=== PATIENT | male | born 1995 | race African-American/Black ===

== ENCOUNTER 2021-01-05 19:28 | Emergency (ER) | payer SELFPAY ==
[~2021-01-05] VITALS: Ht 170.2 cm; Wt 110.0 kg
--- NOTE | 2021-01-05 19:34 | PHYS DOC ---
Adult General Chief Complaint Chief Complaint: SORE THROAT HPI HPI Patient is an otherwise healthy 25-year-old male who presents with sore throat for about the last 24 hours, 5 out of 10, sharp in nature associated with fevers at home from 101-102 with mild whole head headaches. Denies any cough, chest p ain, shortness of breath, abdominal pain, nausea, vomiting, dysuria, hematuria, blood in the stool or diarrhea. Denies any recent traumas, travels, known ill contacts. Review of Systems Review of Systems Review of systems otherwise unremarkable except noted in HPI Physical Exam Physical Exam Constitutional: Well developed, well nourished, no acute distress, non-toxic appearance. [] HENT: Normocephalic, atraumatic, bilateral external ears normal, oropharynx moist, oropharynx with bilateral erythema, and scant white exudate Eyes: PERRLA, EOMI, conjunctiva normal, no discharge. [] Neck: Normal range of motion, no tenderness, supple, no stridor, left-sided cervical lymphadenopathy. [] Cardiovascular:Heart rate regular rhythm, no murmur [] Lungs & Thorax: Bilateral breath sounds clear to auscultation [] Abdomen: Bowel sounds normal, soft, no tenderness, no masses, no pulsatile masses. [] Skin: Warm, dry, no erythema, no rash. [] Neurologic: Alert and oriented X 3, no focal deficits noted. [] Psychologic: Affect normal, judgement normal, mood normal. [] EKG EKG [] Radiology/Procedures Radiology/Procedures [] Heart Score C/O Chest Pain: No Risk Factors: Risk Factors: DM, Current or recent (<one month) smoker, HTN, HLP, family history of CAD, obesity. Risk Scores: Risk Factors: DM, Current or recent (<one month) smoker, HTN, HLP, family histo ry of CAD, obesity. Course & Med Decision Making Course & Med Decision Making Patient is a 25-year-old male who presents with about a day of sore throat, fever, headache Vital signs not concerning. Physical exam noted above. Centor criteria of 5, suggestive of strep throat. Last [id number] medicine was about noon. Given Tylenol, ibuprofen, dexamethasone and amoxicillin. Discussed all findings with patient. Advised on pain control at home. Advised on antibiotic use. Given work note for tomorrow advised to stay away from work while feverish and not to return until 24 hours after fever resolved with no Tylenol or ibuprofen. Advised to follow-up with primary care physician and given contact information for local primary care physicians. Gave return precautions to the ED. Patient grateful, verbalized understanding and agreed with plan of discharge. [] Dragon Disclaimer Dragon Disclaimer This electronic medical record was generated, in whole or in part, using a voice recognition dictation system. Departure Departure: Impression: Primary Impression: Strep pharyngitis Disposition: HOME / SELF CARE / HOMELESS Condition: GOOD Referrals: PCP,NO (PCP) MARK BUTTS MD Patient Instructions: Strep Throat Additional Instructions: Thank you for coming into the emergency department today to allow us to take care of you. Please read all of the attached information very carefully. As discussed you can use Tylenol, ibuprofen and Cepacol lozenges at home as needed. Please take all your antibiotics as prescribed and until gone. You were given a work note for tomorrow to allow rest and recovery. Please do not return to work until you have had no fever for 24 hours with no Tylenol or ibuprofen. Please call your primary care physician first thing Thursday or call the primary care physician at the number provided to establish care if you do not have a primary care physician to set up a follow-up visit. Please come back to the emergency department with new or concerning symptoms as discussed. Scripts Amoxicillin (AMOXICILLIN) 500 Mg Tablet 1 TAB PO BID for strep throat for 10 Days, #19 TAB Prov: ABHISHEK SARABIA MD 01/05/21 ABHISHEK SARABIA MD Jan 05, 2021 19:34
[2021-01-05 19:45] VITALS: BP 137/88
[2021-01-05] MEDS ORDERED: ACETAMINOPHEN 500 MG TABLET PO ONE (19:45)
[2021-01-05] MEDS ORDERED: AMOXICILLIN 250 MG CAPSULE PO ONE (19:45)
[2021-01-05] MEDS ORDERED: IBUPROFEN 600 MG TABLET. PO ONE (19:45)
[2021-01-05] MEDS ORDERED: DEXAMETHASONE 4 MG TABLET PO ONE (19:45)
[2021-01-05] MEDS ORDERED: AMOX500T PO (19:50)
== END 2021-01-05 19:58 | disposition home or self-care (01) ==
LOC: ER 19:28
DX: J02.0 Streptococcal pharyngitis (principal)
CPT/HCPCS: 99284; J8540

== ENCOUNTER 2021-01-28 12:15 | Emergency (ER) | payer SELFPAY ==
[~2021-01-28] VITALS: Ht 170.2 cm; Wt 110.0 kg
[2021-01-28 12:15] VITALS: BP 133/87
[~2021-01-28 12:15] MED LIST: AMOX500T PO
--- NOTE | 2021-01-28 12:36 | PHYS DOC ---
Past History Past Medical History: Migraines Past Surgical History: No Surgical History Alcohol Use: None General Adult EDM: Chief Complaint: HEADACHE HPI: HPI: 25-year-old male presents for a work note. Patient states he had a headache yesterday and his employer required him to come to the hospital today to get a work note. He is headache free at this time. He has no other medical complaints. Review of Systems: Review of Systems: Constitutional: Denies fever or chills Eyes: Denies change in visual acuity HENT: Denies nasal congestion or sore throat Respiratory: Denies cough or shortness of breath Cardiovascular: Denies chest pain or edema GI: Denies abdominal pain, nausea, vomiting, bloody stools or diarrhea : Denies dysuria Musculoskeletal: Denies back pain or joint pain Integument: Denies rash Neurologic: Headache. Denies focal weakness or sensory changes Endocrine: Denies polyuria or polydipsia Lymphatic: Denies swollen glands Psychiatric: Denies depression or anxiety Allergies: Allergies: Allergies Coded Allergies Type Severity Reaction Last Updated Verified No Known Drug Allergies 01/05/21 No Physical Exam: PE: Constitutional: Well developed, well nourished, no acute distress, non-toxic appearance. [] HENT: Normocephalic, atraumatic, bilateral external ears normal, oropharynx moist, no oral exudates, nose normal. [] Eyes: PERRLA, EOMI, conjunctiva normal, no discharge. [] Neck: Normal range of motion, no tenderness, supple, no stridor. [] Cardiovascular: Heart rate regular rhythm, no murmur [] Lungs & Thorax: Bilateral breath sounds clear to auscultation [] Abdomen: Bowel sounds normal, soft, no tenderness, no masses, no pulsatile masses. [] Skin: Warm, dry, no erythema, no rash. [] Back: No tenderness, no CVA tenderness. [] Extremities: No tenderness, no cyanosis, no clubbing, ROM intact, no edema. [] Neurologic: Alert and oriented X 3, normal motor function, normal sensory function, no focal deficits noted. [] Psychologic: Affect normal, judgement normal, mood normal. [] EKG: EKG: [] Radiology/Procedures: Radiology/Procedures: [] Heart Score: C/O Chest Pain: N/A Risk Factors: Risk Factors: DM, Current or recent (<one month) smoker, HTN, HLP, family history of CAD, obesity. Risk Scores: Score 0 - 3: 2.5% MACE over next 6 weeks - Discharge Home Score 4 - 6: 20.3% MACE over next 6 weeks - Admit for Clinical Observation Score 7 - 10: 72.7% MACE over next 6 weeks - Early Invasive Strategies Course & Med Decision Making: Course & Med Decision Making Pertinent Labs and Imaging studies reviewed. (See chart for details) The patient's headache is resolved at this time. He has no further complaints. He is stable for discharge at this time. [] Dragon Disclaimer: Dragon Disclaimer: This electronic medical record was generated, in whole or in part, using a voice recognition dictation system. Departure Departure: Impression: Primary Impression: Headache Disposition: HOME / SELF CARE / HOMELESS Condition: IMPROVED Referrals: PCPJACKELIN (PCP) Patient Instructions: General Headache Without Cause, [id number] CHANDA STARKS DO Jan 28, 2021 12:36
== END 2021-01-28 12:35 | disposition home or self-care (01) ==
LOC: ER 12:15
DX: G43.909 Migraine, unspecified, not intractable, without status migrainosus (principal)
CPT/HCPCS: 99281

== ENCOUNTER 2021-02-02 15:48 | Emergency (ER) | payer SELFPAY ==
[~2021-02-02] VITALS: Ht 170.2 cm; Wt 115.7 kg
--- NOTE | 2021-02-02 16:06 | PHYS DOC ---
Past History Past Medical History: Migraines (MARNI MARTINEZ DO) Past Surgical History: No Surgical History (MARNI MARTINEZ DO) Alcohol Use: None (MARNI MARTINEZ DO) General Adult EDM: Chief Complaint: TESTICULAR PAIN OR INJURY HPI: HPI: 25 yo AA M PMH migraine headaches (on amitriptyline) and obesity presents to the ed with c/o sudden onset left testicular pain that woke patient up in the middle of the night. Patient states he is sexually active, 1 female partner with protection, vaginal only. No known history of sexual transmitted disease. States he's really anxious regarding what's going on "I don't like going to the doctor but I need to know everything is okay." Denies any associated fever, chills, flank pain, nausea, vomiting, dysuria, hematuria, urgency/frequency, rash, lesions or urethral discharge. Reports he has received his Covid vaccine. Denies any blunt trauma. Cannot recall any heavy lifting or squatting. No history of hernias. Declines sexually transmitted prophylaxis but consents to STI testing, for chlamydia and gonorrhea. (MARNI MARTINEZ DO) Review of Systems: Review of Systems: Constitutional: Denies fever or chills Eyes: Denies change in visual acuity HENT: Denies nasal congestion or sore throat Respiratory: Denies cough or shortness of breath Cardiovascular: Denies chest pain or edema GI: Denies abdominal pain, nausea, vomiting, : Denies dysuria or hematuria Musculoskeletal: Denies back pain or joint pain Integument: Denies rash or diaphoresis Neurologic: Denies headache, focal weakness or sensory changes Endocrine: Denies polyuria or polydipsia Lymphatic: Denies swollen glands Psychiatric: Denies suicidal or homicidal ideations (MARNI MARTINEZ DO) Allergies: Allergies: Allergies Coded Allergies Type Severity Reaction Last Updated Verified No Known Drug Allergies 01/05/21 No (MARNI MARTINEZ DO) Physical Exam: PE: Constitutional: Well developed, well nourished, no acute distress, non-toxic appearance, HENT: Normocephalic, atraumatic, Eyes: EOMI, conjunctiva normal, no discharge. Neck: Normal range of motion, supple, Cardiovascular: S1/2 present, regular rhythm Lungs & Thorax: Speaking in full sentences, bilateral equal chest rise, no tachypnea or increased work of breathing Abdomen: soft, no tenderness, obese Skin: Warm, dry, no erythema, no rash. [] Back: No tenderness, no CVA tenderness. [] Extremities: No tenderness, no cyanosis, no lower extremity edema Neurologic: Alert and oriented X 3, normal motor function, normal sensory function, no focal deficits noted. 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 PHYSICIAN: MARNI MARTINEZ DO REASON: testicular pain PROCEDURE: TESTICULAR/SCROTUM CLINICAL HISTORY: Reason: testicular pain / Spl. Instructions: / History: COMPARISON: None available. TECHNIQUE: Ultrasound images of the scrotum was performed with harrison-scale and color doppler. FINDINGS: The right testis measures 4.1 x 6.7 x 2.1 cm. The left testis measures 4.0 x 2.6 x 2.0 cm. There is no intratesticular abnormality. Testicular vascularity is symmetric and within normal limits. The epididymis is normal in appearance bilaterally. There is no hydrocele or varicocele. IMPRESSION: No evidence for testicular torsion Electronically signed by: Phuong Cheney MD (02/02/2021 5:59 PM) MERGED WITH [facility] DICTATED AND SIGNED BY: PHUONG CHENEY MD DATE: 02/02/21 [id number] CC: GILDARDO CASTANEDA MD; PCP,NO; MARNI MARTINEZ DO ~MTH0 0 (MARNI MARTINEZ DO) Radiology/Procedures: [address] [address] IMAGING REPORT Signed PATIENT: JOHN SHAFER LACCOUNT: [id number] : 1995 LOCATION: ER AGE: 25 SEX: M EXAM STATUS: REG ER ORD. PHYSICIAN: MARNI MARTINEZ DO REASON: testicular pain PROCEDURE: TESTICULAR/SCROTUM CLINICAL HISTORY: Reason: testicular pain / Spl. Instructions: / History: COMPARISON: None available. TECHNIQUE: Ultrasound images of the scrotum was performed with harrison-scale and color doppler. FINDINGS: The right testis measures 4.1 x 6.7 x 2.1 cm. The left testis measures 4.0 x 2.6 x 2.0 cm. There is no intratesticular abnormality. Testicular vascularity is symmetric and within normal limits. The epididymis is normal in appearance bilaterally. There is no hydrocele or varicocele. IMPRESSION: No evidence for testicular torsion Electronically signed by: Phuong Cheney MD (02/02/2021 5:59 PM) [facility] WITH [facility] DICTATED AND SIGNED BY: PHUONG CHENEY MD DATE: 02/02/211756 CC: GILDARDO CASTANEDA MD; PCP,NO; MARNI MARTINEZ DO ~MTH0 0 (GILDARDO CASTANEDA MD) Heart Score: C/O Chest Pain: No Risk Factors: Risk Factors: DM, Current or recent (<one month) smoker, HTN, HLP, family history of CAD, obesity. Risk Scores: Score 0 - 3: 2.5% MACE over next 6 weeks - Discharge Home Score 4 - 6: 20.3% MACE over next 6 weeks - Admit for Clinical Observation Score 7 - 10: 72.7% MACE over next 6 weeks - Early Invasive Strategies (MARNI MARTINEZ DO) Course & Med Decision Making: Course & Med Decision Making Pertinent Labs and Imaging studies reviewed. (See chart for details) U/A unremarkable. Testicular ultrasound is performed but has not been read by radiologist. Physical exam with no obvious abnormalities, considering left sided varicocele. Due to shift change patient was signed out to oncoming physician Dr. Castaneda for further evaluation and disposition. (MARNI MARTINEZ DO) Course & Med Decision Making Reviewed US and UA. Re-exam. Does seem to have tender epididymis and spe rmatic cord. No hernia appreciated. Testicle itself is nontender. No history of 3 nonprotected sex partners we will cover STD and epididymitis . Patient follow-up pending cultures. Patient return if any concerns. Patient to masturbate or have protected sex with barrier. Return if any concerns. If this is infectious in nature do not expect improvement for the next 3 days. Take Tylenol and ibuprofen for pain. Impression: 1. Left epididymis/ spermatic cord pain (GILDARDO CASTANEDA MD) Dragon Disclaimer: Dragon Disclaimer: This electronic medical record was generated, in whole or in part, using a voice recognition dictation system. (MARNI MARTINEZ DO) Departure Departure: Impression: Primary Impression: Left testicular pain Referrals: PCP,JACKELIN (PCP) Scripts Cephalexin (KEFLEX) 750 Mg Capsule 500 MG PO TID for testical pain, pending cultur for 14 Days, #42 CAP Prov: GILDARDO CASTANEDA MD 02/02/21 MARNI MARTINEZ DO Feb 02, 2021 16:06 GILDARDO CASTANEDA MD Feb 02, 2021 18:12
[2021-02-02 16:49] LABS: BILIRUBIN,URINE NEG (NEG); CLARITY,URINE CLEAR; COLOR,URINE YELLOW; GLUCOSE,URINE NEG (NEG); NITRITE,URINE NEG (NEG)
[2021-02-02 16:51] LABS: BACTERIA,URINE 0 /HPF (0-FEW); RBC,URINE 0 /HPF (0-2); SQUAMOUS EPITHELIAL CELL,UR OCC /LPF; WBC,URINE 0 /HPF (0-4)
--- NOTE | 2021-02-02 18:01 | RAD ---
CLINICAL HISTORY: Reason: testicular pain / Spl. Instructions: / History: COMPARISON: None available. TECHNIQUE: Ultrasound images of the scrotum was performed with harrison-scale and color doppler. FINDINGS: The right testis measures 4.1 x 6.7 x 2.1 cm. The left testis measures 4.0 x 2.6 x 2.0 cm. There is no intratesticular abnormality. Testicular vascularity is symmetric and within normal limit s. The epididymis is normal in appearance bilaterally. There is no hydrocele or varicocele. IMPRESSION: No evidence for testicular torsion Electronically signed by: Phuong Barrera MD (02/02/2021 5:59 PM) STAR
[2021-02-02] MEDS ORDERED: CEPH750C9 PO (18:18)
[2021-02-02] MEDS ORDERED: cefTRIAXone IM 1 GM VIAL IM ONE (18:30)
[2021-02-02] MEDS ORDERED: AZITHROMYCIN 250 MG TABLET. PO ONE (18:30)
[2021-02-02] MEDS ORDERED: metroNIDAZOLE 500 MG TABLET PO ONE (18:30)
[2021-02-02] MEDS ORDERED: ONDANSETRON ODT 4 MG TAB.RAPDIS PO ONE (18:30)
[2021-02-02] MEDS ORDERED: KETOROLAC 60 MG/2 ML VIAL. IM ONE (18:30)
[2021-02-02 18:52] VITALS: BP 129/81
== END 2021-02-02 18:48 | disposition home or self-care (01) ==
LOC: ER 15:48
DX: N50.812 Left testicular pain (principal); G43.909 Migraine, unspecified, not intractable, without status migrainosus; E66.9 Obesity, unspecified; Z68.39 Body mass index [BMI] 39.0-39.9, adult
CPT/HCPCS: 36415; 76870; 81001; 87491; 87591; 96372; 99284; J0696; J1885; Q0162

== ENCOUNTER 2021-08-25 21:05 | Emergency (ER) | payer SELFPAY ==
[~2021-08-25] VITALS: Ht 170.2 cm; Wt 115.7 kg
[~2021-08-25 21:05] MED LIST changes: +CEPH750C9 PO
--- NOTE | 2021-08-25 22:02 | PHYS DOC ---
Past History Past Medical History: Migraines Past Surgical History: No Surgical History Alcohol Use: None General Adult EDM: Chief Complaint: CONGESTION HPI: HPI: ".. I work at the [employer] .. at [employer].. and I worried I got the flu or COVID..,. I did get the COVID vaccination.. " " But maybe I got it.. I feel like I got the flu..." Patient is a 26 year old male who presents with complaints congestion, cough that is nonproductive, malaise, arthralgia, myalgia, and subjective fevers. Patient has had COVID vaccination. Patient did not get flu vaccination. No recent travel. No specific ill contacts. Normally healthy. Review of Systems: Review of Systems: Constitutional: Subjective fever or chills Eyes: Denies change in visual acuity HENT: Complaints of nasal congestion and sore throat Respiratory: Complaints cough Cardiovascular: Denies chest pain or edema GI: Denies abdominal pain, nausea, vomiting, bloody stools or diarrhea : Denies dysuria Musculoskeletal: Complains of myalgia and arthralgia Integument: Denies rash Neurologic: Denies headache, focal weakness or sensory changes Endocrine: Denies polyuria or polydipsia Lymphatic: Denies swollen glands Psychiatric: Denies depression or anxiety Family History: Family History: Noncontributory Allergies: Allergies: Allergies Coded Allergies Type Severity Reaction Last Updated Verified No Known Drug Allergies 01/05/21 No Physical Exam: PE: Constitutional: Well developed, well nourished, no acute distress, non-toxic appearance. [] HENT: Normocephalic, atraumatic, bilateral external ears normal, oropharynx moist, no oral exudates, nose normal. [] Eyes: PERRLA, EOMI, conjunctiva normal, no discharge. [] Neck: Normal range of motion, no tenderness, supple, no stridor. [] Cardiovascular:Heart rate regular rhythm, no murmur [] Lungs & Thorax: Bilateral breath sounds clear to auscultation [] Abdomen: Bowel sounds normal, soft, no tenderness, no masses, no pulsatile masses. [] Skin: Warm, dry, no erythema, no rash. [] Back: No tenderness, no CVA tenderness. [] Extremities: No tenderness, no cyanosis, no clubbing, ROM intact, no edema. [] Neurologic: Alert and oriented X 3, normal motor function, normal sensory function, no focal deficits noted. [] Psychologic: Affect normal, judgement normal, mood normal. [] EKG: EKG: [] Radiology/Procedures: Radiology/Procedures: [] Heart Score: C/O Chest Pain: N/A Risk Factors: Risk Factors: DM, Current or recent (<one month) smoker, HTN, HLP, family history of CAD, obesity. Risk Scores: Score 0 - 3: 2.5% MACE over next 6 weeks - Discharge Home Score 4 - 6: 20.3% MACE over next 6 weeks - Admit for Clinical Observation Score 7 - 10: 72.7% MACE over next 6 weeks - Early Invasive Strategies Course & Med Decision Making: Course & Med Decision Making Pertinent Labs and Imaging studies reviewed. (See chart for details). Push fluids. Take Tylenol ibuprofen as needed for discomfort. Take Tamiflu 75 mg twice a day if he elects to treat the flu. Self isolate the next 5 days. Follow-up primary care. Return if any concerns. Impression: 1. Influenza A. Positive [] José Disclaimer: José Disclaimer: This electronic medical record was generated, in whole or in part, using a voice recognition dictation system. Departure Departure: Referrals: PCP,NO (PCP) Scripts Oseltamivir Phosphate (TAMIFLU) 75 Mg Capsule 75 MG PO BID for Influz. A for 5 Days, #10 CAP Prov: GILDARDO BOLTON MD 08/25/21 José Disclaimer This chart was dictated in whole or in part using Voice Recognition software in a busy, high-work load, and often noisy Emergency Department environment. It may contain unintended and wholly unrecognized errors or omissions. GILDARDO BOLTON MD Aug 25, 2021 22:02
[2021-08-25 23:28] LABS: INFLUENZA B PATIENT NEGATIVE (NEGATIVE)
[2021-08-25 23:30] LABS: INFLUENZA A PATIENT POSITIVE (NEGATIVE)
[2021-08-25] MEDS ORDERED: OSEL75CA PO (23:45)
[2021-08-26] VITALS: BP 147/100
[2021-08-26] MEDS ORDERED: OSELTAMIVIR 75 MG CAPSULE PO ONE
== END 2021-08-26 | disposition home or self-care (01) ==
LOC: ER 21:05
DX: J10.1 Influenza due to other identified influenza virus with other respiratory manifestations (principal); G43.909 Migraine, unspecified, not intractable, without status migrainosus; Z20.822 Contact with and (suspected) exposure to COVID-19
CPT/HCPCS: 87070; 87428; 87880; 99283

== ENCOUNTER 2021-09-24 04:59 | Emergency (ER) | payer SELFPAY ==
[~2021-09-24] VITALS: Ht 170.2 cm; Wt 115.7 kg
[~2021-09-24 04:59] MED LIST changes: +OSEL75CA PO
--- NOTE | 2021-09-24 05:21 | PHYS DOC ---
Past History Past Medical History: Migraines Past Surgical History: No Surgical History Alcohol Use: None General Adult EDM: Chief Complaint: ABDOMINAL PAIN HPI: HPI: 26 yo obese AA M who denies any significant PMH presents to the ed with c/o intermittent, radiating abdominal pain for the past 2 years, currently stating pain is in his epigastric region when lying flat and moves to his right lower quadrant when he stands up. States pain is in his left upper quadrant when lying on his right side and in his low back when lying on his left side. Pain is described as muscle cramps and usually associated with meals, persists for 1 to 4 hours. No relief with Ex-Lax prior to arrival. Reports some bright red blood when passing stools but does admit to straining before these events. Is concerned he may have a hemorrhoid. States he's not worried because it's not a cup full of blood. No history of alcohol or illicit drug use. Attempted to be seen by Dr. Morris's office but had difficulties due to lack of insurance. Has never been seen by healthcare provider for this complaint. Patient googled his symptoms and is concerned for appendicitis versus inflammatory bowel disease. Reports regular bowel movements every 2 days, occasional constipation. EMR was reviewed and patient had influenza 2 months ago. Review of Systems: Review of Systems: Constitutional: Denies fever or chills Eyes: Denies change in visual acuity HENT: Denies nasal congestion or sore throat Respiratory: Denies cough or shortness of breath Cardiovascular: Denies chest pain or edema GI: Denies nausea, vomiting, or diarrhea : Denies dysuria or hematuria Musculoskeletal: Denies back pain or joint pain Integument: Denies rash or diaphoresis Neurologic: Denies headache, focal weakness or sensory changes Endocrine: Denies polyuria or polydipsia Lymphatic: Denies swollen glands Psychiatric: Denies depression or anxiety Current Medications: Current Meds: Current Medications Medications (Trade) Dose Ordered Sig/Rickey Start Time Stop Time Status Last Admin Dose Admin Sodium Chloride 1,000 ml @ 1,000 mls/hr 1X ONCE 09/24/21 06:00 09/24/21 06:59 Allergies: Allergies: Allergies Coded Allergies Type Severity Reaction Last Updated Verified No Known Drug Allergies 01/05/21 No Physical Exam: PE: Constitutional: Well developed, well nourished, no acute distress, non-toxic appearance, obese HENT: Normocephalic, atraumatic, Eyes: EOMI, conjunctiva normal, no discharge. Neck: Normal range of motion, supple, Cardiovascular: S1/2 present, regular rhythm Lungs & Thorax: Speaking in full sentences, bilateral equal chest rise, no tachypnea or increased work of breathing Abdomen: soft, no tenderness with palpation-patient admits pressing on the abdomen does not worsen the pain, no Mckeon sign, no Brogue's point tenderness, no rigidity or guarding Skin: Warm, dry, no erythema, no rash. [] Back: No tenderness, no CVA tenderness. [] Extremities: No tenderness, no cyanosis, no lower extremity edema Neurologic: Alert and oriented X 3, normal motor function, normal sensory function, no focal deficits noted. [] Psychologic: Affect normal, judgement normal, mood normal. [] : Rectum examined with rn, patient with no external hemorrhoids, anal fissures or active bleeding Current Patient Data: Vital Signs: Vital Signs Date Time Temp Pulse Resp B/P (MAP) Pulse Ox O2 Delivery O2 Flow Rate FiO2 09/24/21 05:05 98.0 64 18 123/92 (102) 98 Room Air EKG: EKG: [] Radiology/Procedures: Radiology/Procedures: IMAGING REPORT Signed PATIENT: JOHN SHAFER LACCOUNT: [id number] : 1995 LOCATION: ER AGE: 26 SEX: M EXAM STATUS: REG ER ORD. PHYSICIAN: MARNI MARTINEZ DO REASON: epigastric and rlq pain OMNI 300 75CC PROCEDURE: CT ABD PELV W/ IV CONTRST ONLY Exam: CT abdomen/pelvis with intravenous contrast Indication: Epigastric and right lower quadrant pain, Comparison: None Technique: Helical CT imaging performed of the abdomen and pelvis after the intravenous administration of 75 mL Omnipaque 300 contrast. Sagittal and coronal reformats were obtained. One or more of the following individualized dose reduction techniques were ut ilized for this examination: 1. Automated exposure control 2. Adjustment of the mA and/or kV according to patient size 3. Use of iterative reconstruction technique. Findings: Lower chest: Normal. Liver: Probable hepatic steatosis. The liver is normal in size. Gallbladder/Biliary Tree: Normal. Pancreas: Normal. Spleen: Normal. Adrenal Glands: Normal. Kidneys/Ureters/Bladder: Normal. No hydronephrosis. Reproductive Organs: Prostate gland is normal. Stomach, small bowel, and colon: Stomach is normal. There is no small bowel obstruction. The appendix is normal. There is mild wall thickening of the sigmoid colon and rectum, and possibly in the terminal ileum. There is also prominent submucosal fat in these areas suggesting chronic inflammation. Vasculature: No aortic aneurysm or vascular calcifications. Lymph Nodes: No lymphadenopathy. Peritoneum and retroperitoneum: No free fluid or free air. Bones: No acute osseous abnormality. Miscellaneous: None IMPRESSION: 1. Possible enterocolitis with mild wall thickening versus incomplete distention of the distal ileum, sigmoid colon, and rectum. Correlate for inflammatory bowel disease. 2. Probable hepatic steatosis. Electronically signed by: Asia Patel MD (09/24/2021 6:07 AM) [facility] DICTATED AND SIGNED BY: ASIA PATEL MD DATE: 09/24/21600 CC: PCP,NO; MARNI MARTINEZ DO ~MTH0 0 Heart Score: C/O Chest Pain: No Risk Factors: Risk Factors: DM, Current or recent (<one month) smoker, HTN, HLP, family history of CAD, obesity. Risk Scores: Score 0 - 3: 2.5% MACE over next 6 weeks - Discharge Home Score 4 - 6: 20.3% MACE over next 6 weeks - Admit for Clinical Observation Score 7 - 10: 72.7% MACE over next 6 weeks - Early Invasive Strategies Course & Med Decision Making: Course & Med Decision Making Pertinent Labs and Imaging studies reviewed. (See chart for details) Encounter for chronic abdominal pain, intermittent for the past 2 years in a very well-appearing male. Patient is ambulatory and moves in no distress. Cannot reproduce patient's symptoms. Labs show no leukocytosis or electrolyte abnormality. CT imaging concerning for possible enterocolitis versus inflammatory bowel disease. Patient with no active diarrhea. Patient is hemodynamically stable, afebrile and tolerating oral intake. Patient with no anemia on labs. Rectal exam showed no bright red blood per rectum with no obvious hemorrhoids or anal fissures. Patient is calm and in no distress. Patient has no active GI bleeding. Will discharge home with strict ED return precautions were given for persistent rectal bleeding, severe abdominal pain, fever or dehydration. Encouraged urgent outpatient follow-up with PMD for routine care and GI to consider colonoscopy for inflammatory bowel disease evaluation. Life-threatening processes were considered but are low suspicion at this time, given history, physical exam and ED workup. Pt was educated on all prescription medications and adverse effects. All patient's questions were answered and pt was stable at time of discharge. Life/limb-threatening differential includes but is not limited to, aortic dissection, aortic aneurysm, acute coronary syndrome, surgical abdomen (appendicitis, cholecystitis, ischemic bowel, strangulated hernia, etc), bowel obstruction or volvulus, bladder outlet obstruction, gastrointestinal bleeding, inflammatory bowel disease, peptic ulcer disease, ACS/CAD, sepsis, diverticular disease, ureterolithiasis, nephrolithiasis, ovarian or testicular torsion, ectopic , vaginal hemorrhage, or genitourinary infection. I have spoken with the patient and/or caregivers. I explained the patient's condition, diagnoses and treatment plan based on the information available to me at this time. I have answered the patient and/or caregiver's questions and addressed any concerns. The patient and/or caregivers have a good understanding of patient's diagnosis, condition and treatment plan as can be expected at this point. Vital signs have been stable. Patient's condition is stable and appropriate for discharge from the emergency department. Patient will pursue further outpatient evaluation with primary care physician or other designated or consulting physician as outlined in the discharge instructions. The patient and/or caregivers are agreeable to this plan of care and follow-up instructions have been explained in detail. The patient and/or caregivers have received these instructions in written form and have expressed an understanding of the discharge instructions. The patient and/or caregivers are aware that any significant change of condition or worsening of symptoms should prompt immediate return to this or the closest emergency department or call to 911. José Disclaimer: José Disclaimer: This electronic medical record was generated, in whole or in part, using a voice recognition dictation system. Departure Departure: Impression: Primary Impression: Abdominal pain Additional Impression: Enterocolitis Disposition: HOME / SELF CARE / HOMELESS Condition: STABLE Referrals: PCP,NO (PCP) [phone] [facility] [phone] Patient Instructions: Abdominal Pain, Diet and Irritable Bowel Syndrome Additional Instructions: FOLLOW UP WITH GASTROENTEROLOGY: regarding CT findings of enterocolitis vs inflammatory bowel disease [facility] [place] [address], [address] [place], [place] [id number] OR [facility] [address], [address], [place] [address] EMERGENCY DEPARTMENT GENERAL DISCHARGE INSTRUCTIONS Thank you for coming to [facility] (ED) today and trusting us with you care. We trust that you had a positivie experience in our Emergency Department. If you wish to speak to the department management, you may call the director at [phone]. YOUR FOLLOW UP INSTRUCTIONS ARE FOLLOWS: 1. Do you have a private Doctor? If you do not have a private doctor, please ask for a resource list of physicians or clinics that may be able to assist you with follow up care. 2. The Emergency Physician has interpreted your x-rays. The X-Ray specialist will also review them. If there is a change in the findings, you will be notified in 48 hours when at all possible. 3. A lab test or culture has been done, your results will be reviewed and you will be notified if you need a change in treatment. ADDITIONAL INSTRUCTIONS AND INFORMATION: 1. Your care today has been supervised by a physician who is specially trained in emergency care. Many problems require more than one evaluation for a complete diagnosis and treatment. We recommend that you schedule your follow up appointment as recommended to ensure complete treatment of you illness or injury. If you are unable to obtain follow up care and continue to have a problem, or if your condition worsens, we recommend that you return to the ED. 2. We are not able to safely determine your condition over the phone nor are we able to give sound medical advice over the phone. For these safety reasons, if you call for medical advice we will ask you to come to the ED for further evaluation. 3. If you have any questions regarding these discharge instructions please call the ED at [phone]. SAFETY INFORMATION: In the interest of safety, wellness, and injury prevention; we encourage you to wear your sealbelt, if you smoke; quite smoking, and we encourage family to use a protective helmet for bicycling and other sporting events that present an increased risk for head injury. IF YOUR SYMPTOMS WORSEN OR NEW SYMPTOMS DEVELOP, OR YOU HAVE CONCERNS ABOUT YOUR CONDITION; OR IF YOUR CONDITION WORSENS WHILE YOU ARE WAITING FOR YOUR FOLLOW UP APPOINTMENT; EITHER CONTACT YOUR PRIMARY CARE DOCTOR, THE PHYSICIAN WHOSE NAME AND NUMBER YOU WERE GIVEN, OR RETURN TO THE ED IMMEDIATELY. [facility] DO Sep 24, 2021 05:21
[2021-09-24] MEDS ORDERED: CONTRAST GIVEN. MC PRN (05:30)
[2021-09-24 05:57] LABS: BASO % 0 % (0-3); EOS # 0.1 x10^3/uL (0.0-0.7); EOS % 2 % (0-3); HEMATOCRIT 47.7 % (39.0-53.0); HEMOGLOBIN 15.4 g/dL (13.0-17.5); LYMPH # 1.9 x10^3/uL (1.0-4.8); LYMPH % 32 % (24-48); MEAN CORPUSCULAR HEMOGLOBIN 27 pg (25-35); MEAN CORPUSCULAR HGB CONC 32 g/dL (31-37); MEAN CORPUSCULAR VOLUME 84 fL (79-100); MONO # 0.7 x10^3/uL (0.0-1.1); MONO % 12 % (0-9); NEUT # 3.1 x10^3uL (1.8-7.7); NEUT % 53 % (31-73); PLATELET COUNT 244 x10^3/uL (140-400); RED BLOOD COUNT 5.69 x10^6/uL (4.30-5.70); RED CELL DISTRIBUTION WIDTH 13.6 % (11.5-14.5); WHITE BLOOD COUNT 5.9 x10^3/uL (4.0-11.0)
[2021-09-24] MEDS ORDERED: IOHEXOL 300 MG/ML 75 ML VIAL. IV ONE (06:00)
[2021-09-24] MEDS ORDERED: IV NORMAL SALINE 1,000ML 1,000 ML IV ONE (06:00)
[2021-09-24 06:01] LABS: BARBITURATES NEG (NEG); BENZODIAZEPINES NEG (NEG); CANNABINOIDS NEG (NEG); COCAINE NEG (NEG); METHADONE NEG (NEG); OPIATES NEG (NEG); PHENCYCLIDINE NEG (NEG)
[2021-09-24 06:02] LABS: AMPHETAMINE/METHAMPHETAMINE NEG (NEG)
[2021-09-24 06:08] LABS: CALCIUM 8.9 mg/dL (8.5-10.1); CREATININE 1.1 mg/dL (0.7-1.3); GFR 96.4; POTASSIUM 3.9 mmol/L (3.5-5.1)
--- NOTE | 2021-09-24 06:09 | RAD ---
Exam: CT abdomen/pelvis with intravenous contrast Indication: Epigastric and right lower quadrant pain, Comparison: None Technique: Helical CT imaging performed of the abdomen and pelvis after the intravenous administratio n of 75 mL Omnipaque 300 contrast. Sagittal and coronal reformats were obtained. One or more of the following individualized dose reduction techniques were utilized for this examinat ion: 1. Automated exposure control 2. Adjustment of the mA and/or kV according to patient size 3. Use of iterative reconstruction technique. Findings: Lower chest: Normal. Liver: Probable hepatic steatosis. The liver is normal in size. Gallbladder/Biliary Tree: Normal. Pancreas: Normal. Spleen: Normal. Adrenal Glands: Normal. Kidneys/Ureters/Bladder: Normal. No hydronephrosis. Reproductive Organs: Prostate gland is normal. Stomach, small bowel, and colon: Stomach is normal. There is no small bowel obstruction. The appendix is normal. There is mild wall thickening of the sigmoid colon and rectum, and possibly in the termin al ileum. There is also prominent submucosal fat in these areas suggesting chronic inflammation. Vasculature: No aortic aneurysm or vascular calcifications. Lymph Nodes: No lymphadenopathy. Peritoneum and retroperitoneum: No free fluid or free air. Bones: No acute osseous abnormality. Miscellaneous: None IMPRESSION: 1. Possible enterocolitis with mild wall thickening versus incomplete distention of the distal ileum , sigmoid colon, and rectum. Correlate for inflammatory bowel disease. 2. Probable hepatic steatosis. Electronically signed by: Asia Patel MD (09/24/2021 6:07 AM) [facility]
[2021-09-24 06:13] LABS: LIPASE 39 U/L (73-393)
[2021-09-24 06:14] LABS: ALBUMIN 3.9 g/dL (3.4-5.0); TOTAL BILIRUBIN 0.4 mg/dL (0.2-1.0); TOTAL PROTEIN 7.8 g/dL (6.4-8.2)
[2021-09-24 06:18] VITALS: BP 114/68
[2021-09-24] MEDS ORDERED: LIDO:MAALOX 1:1 20 ML SINGLE DOSE. PO ONE (06:30)
== END 2021-09-24 06:25 | disposition home or self-care (01) ==
LOC: ER 04:59
DX: K52.9 Noninfective gastroenteritis and colitis, unspecified (principal); G43.909 Migraine, unspecified, not intractable, without status migrainosus
CPT/HCPCS: 36415; 74177; 80053; 80307; 82550; 83690; 85025; 96360; 99285; J7030; Q9967